=== PATIENT | female | born 1960 | race Caucasian/White ===

== ENCOUNTER 2020-12-21 14:11 | Outpatient (CLI) | payer BC | END 2020-12-21 14:12 | disposition home or self-care (01) | LOC: BICMAMMO 14:11 | PROVIDERS: ATTEND Family Medicine | DX: Z12.31 Encounter for screening mammogram for malignant neoplasm of breast (principal); Z80.3 Family history of malignant neoplasm of breast; N63.11 Unspecified lump in the right breast, upper outer quadrant; N63.20 Unspecified lump in the left breast, unspecified quadrant | CPT/HCPCS: 77063; 77067 ==

== ENCOUNTER 2021-03-09 09:22 | Outpatient (CLI) | payer BC | END 2021-03-09 09:23 | disposition home or self-care (01) | LOC: BICMAMMO 09:22 | PROVIDERS: ATTEND Family Medicine | DX: N63.20 Unspecified lump in the left breast, unspecified quadrant (principal) | CPT/HCPCS: G0279 ==